=== PATIENT | male | born 1985 | race Caucasian/White ===

== ENCOUNTER 2018-09-20 02:56 | Emergency (ER) | payer SELFPAY ==
[2018-09-20] MEDS ORDERED: ACETAMINOPHEN 325 MG TABLET PO ONE (05:38)
[2018-09-20 06:06] LABS: A TYPE INFLUENZA AG POSITIVE (NEGATIVE); B INFLUENZA AG NEGATIVE (NEGATIVE)
--- NOTE | 2018-09-20 06:14 | RADIOLOGY REPORT (SQ) ---
CLINICAL HISTORY: difficulty breathing COMPARISON: None. TECHNIQUE: XR CHEST 1 VIEW 09/20/2018 12:00 AM [employer] FINDINGS: Cardiac silhouette is normal in size. Lungs are clear without consolidation, atelectasis, mass or edema. There is no pleural effusion. There is no pneumothorax. There are no acute osseous findings. IMPRESSION: Clear lungs.
[2018-09-20] MEDS ORDERED: KETOROLAC TROMETHAMINE INJ/PF 30 MG/1 ML SDV ONE (06:23)
[2018-09-20] MEDS ORDERED: KETOROLAC TROMETHAMINE INJ/PF 30 MG/1 ML SDV IV ONE (06:29)
[2018-09-20] MEDS: NORMAL SALINE 1000 ML 1,000 ML IV PRN ×2 (06:34→08:11)
[2018-09-20 06:48] LABS: ABSOLUTE BASOPHILS # (AUTO) 0.1 10^3/uL (0.0-0.2); ABSOLUTE LYMPHOCYTES (AUTO) 1.4 10^3/uL (0.5-4.7); ABSOLUTE MONOCYTES (AUTO) 1.1 10^3/uL (0.1-1.4); BASOPHILS % (AUTO) 0.6 % (0-2); EOSINOPHILS % (AUTO) 0.3 % (0-6); HEMATOCRIT 46.8 % (37.9-51.0); HEMOGLOBIN 16.1 g/dL (13.5-17.0); LYMPHOCYTES % (AUTO) 16.6 % (13-45); MEAN CORPUSCULAR HEMOGLOBIN 31.6 pg (27.0-33.4); MEAN CORPUSCULAR HGB CONC 34.4 g/dL (32.0-36.0); MEAN CORPUSCULAR VOLUME 92 fl (80-97); MONOCYTES % (AUTO) 13.2 % (3-13); PLATELET COUNT 188 10^3/uL (150-450); RED CELL DISTRIBUTION WIDTH 14.2 % (11.5-14.0); SEGMENTED NEUTROPHILS % (AUTO) 69.3 % (42-78); TOTAL CELLS COUNTED % (AUTO) 100 %; WHITE BLOOD COUNT 8.7 10^3/uL (4.0-10.5)
[2018-09-20 07:01] LABS: ANION GAP 10 (5-19); BLOOD UREA NITROGEN 12 mg/dL (7-20); CALCIUM 8.8 mg/dL (8.4-10.2); CARBON DIOXIDE 22 mmol/L (22-30); CHLORIDE 106 mmol/L (98-107); CREATINE KINASE 72 U/L (55-170); GLUCOSE 101 mg/dL (75-110); POTASSIUM 4.3 mmol/L (3.6-5.0); SODIUM 138.4 mmol/L (137-145)
[2018-09-20 08:35] LABS: APPEARANCE,URINE SLIGHTLY-CLOUDY; BILIRUBIN,URINE NEGATIVE (NEGATIVE); GLUCOSE, URINE NEGATIVE (NEGATIVE); KETONES,URINE NEGATIVE (NEGATIVE); LEUKOCYTE ESTERASE,URINE TRACE (NEGATIVE); NITRITE,URINE NEGATIVE (NEGATIVE); PROTEIN,URINE NEGATIVE (NEGATIVE); URINE SPECIFIC GRAVITY 1.032
[2018-09-20 08:41] LABS: COLOR,URINE YELLOW
[2018-09-20] MEDS ORDERED: ONDANSETRON HCL INJ/PF 4 MG/2 ML SDV IV ONE (08:43)
--- NOTE | 2018-09-20 09:02 | ER Document Report ---
ED General - General Chief Complaint: Flu Symptoms Stated Complaint: FEVER/COUGH Time Seen by Provider: 09/20/18 06:06 TRAVEL OUTSIDE OF THE [place] IN LAST 30 DAYS: No - HPI Patient complains to provider of: Fever feeling unwell Notes: Patient coming in for fever feeling unwell for the last 48 hours. Patient states fever at home was 103 denies any nausea vomiting diarrhea. Family is concerned patient may have had some possible hallucinations at home. Upon my evaluation patient is complaining of headache diffuse body pain. Patient not receive a flu shot this year otherwise denies any past medical history denies any recent travel or sick contacts. Patient looks to be feeling unwell upon my evaluation moving all 4 extremities - Related Data Allergies/Adverse Reactions: cinnamon Allergy (Uncoded 09/20/18 02:57) Past Medical History - Social History Smoking Status: Current Every Day Smoker Chew tobacco use (# tins/day): No Frequency of alcohol use: None Drug Abuse: None Family History: Reviewed & Not Pertinent Patient has suicidal ideation: No Patient has homicidal ideation: No Renal/ Medical History: Denies: Hx Peritoneal Dialysis Past Surgical History: Reports: Hx Cardiac Surgery - cardiac ablation, Hx Tonsillectomy - Immunizations Immunizations up to date: Yes Hx Diphtheria, Pertussis, Tetanus Vaccination: Yes Review of Systems - Review of Systems Constitutional: Fever EENT: No symptoms reported Cardiovascular: No symptoms reported Respiratory: No symptoms reported Gastrointestinal: No symptoms reported Genitourinary: No symptoms reported Male Genitourinary: No symptoms reported Musculoskeletal: No symptoms reported Skin: No symptoms reported Hematologic/Lymphatic: No symptoms reported Neurological/Psychological: No symptoms reported -: Yes All other systems reviewed and negative Physical Exam - Vital signs Vitals: Temp Pulse Resp BP Pulse Ox 99.6 F 98 22 H 145/86 H 97 09/20/18 03:02 09/20/18 03:02 09/20/18 03:02 09/20/18 03:02 09/20/18 03:02 Interpretation: Normal - General General appearance: Appears well, Alert - HEENT Head: Normocephalic, Atraumatic Eyes: Normal Pupils: PERRL - Respiratory Respiratory status: No respiratory distress Chest status: Nontender Breath sounds: Normal Chest palpation: Normal - Cardiovascular Rhythm: Regular Heart sounds: Normal auscultation Murmur: No - Abdominal Inspection: Normal Distension: No distension Bowel sounds: Normal Tenderness: Nontender Organomegaly: No organomegaly - Back Back: Normal, Nontender - Extremities General upper extremity: Normal inspection, Nontender, Normal color, Normal ROM, Normal temperature General lower extremity: Normal inspection, Nontender, Normal color, Normal ROM, Normal temperature, Normal weight bearing. No: Wilder's sign - Neurological Neuro grossly intact: Yes Cognition: Normal Orientation: AAOx4 [place] Coma Scale Eye Opening: Spontaneous [place] Coma Scale Verbal: Oriented [place] Coma Scale Motor: Obeys Commands [place] Coma Scale Total: 15 Speech: Normal Motor strength normal: LUE, RUE, LLE, RLE Sensory: Normal - Psychological Associated symptoms: Normal affect, Normal mood - Skin Skin Temperature: Warm Skin Moisture: Dry Skin Color: Normal Course - Re-evaluation Re-evalutation: 09/20/18 13:58 Laboratory studies showed the patient is positive for flu type A. Patient was given IV fluids for hydration that his urinalysis was very concentrated. Patient otherwise was educated about treatment of flu continue Tylenol and Motrin. Encourage patient drink plenty of fluids patient will be discharged home - Vital Signs Vital signs: Temp Pulse Resp BP Pulse Ox 98.1 F 59 L 15 124/79 95 09/20/18 09:22 09/20/18 09:37 09/20/18 09:37 09/20/18 09:22 09/20/18 09:37 - Laboratory Result Diagrams: 09/20/18 06:35 09/20/18 06:35 Laboratory results interpreted by me: 09/20/18 09/20/18 06:35 08:12 RDW 14.2 H Monocytes % 13.2 H Urine Urobilinogen 2.0 H Ur Leukocyte Esterase TRACE H Discharge - Discharge Clinical Impression: Influenza A, Dehydration Condition: Good Disposition: HOME, SELF-CARE Instructions: Influenza ([facility]) [id number] Additional Instructions: Your symptoms are due to influenza virus. However, it is important that you continue to monitor for any concerning symptoms including inability to tolerate oral fluids, less than 2 urinations in a 24 hour period, and lethargy Please continue to offer oral solutions such as Pedialyte, water, gatorade. It is okay if you do not want to eat over the next several days but it is important that they continue to drink fluids. You may also provide a medication such as ibuprofen (Motrin) or acetaminophen (Tylenol) per box instructions for fever. Please also follow-up with your doctor in the next several days. Please take the medications given to you as prescribed. Prescriptions: Ibuprofen [Motrin 600 mg Tablet] 600 mg PO Q8HP PRN #21 tablet PRN Reason: Ondansetron [Zofran Odt 4 mg Tablet] 1 - 2 tab PO Q4H PRN #30 tab.rapdis PRN Reason: For Nausea/Vomiting Promethazine HCl [Phenergan 25 mg Tablet] 25 mg PO Q6 #30 tablet Forms: Return to Work
[2018-09-20] MEDS ORDERED: ONDANSETRON ODT 4 MG TAB (6 TAB/ER DISP) PO PRN (09:19)
[2018-09-20 09:33] VITALS: BP 124/79
[2018-09-20 09:40] LABS: URINE BARBITURATES SCREEN NEGATIVE; URINE BENZODIAZEPINES SCREEN NEGATIVE; URINE COCAINE SCREEN NEGATIVE; URINE MARIJUANA (THC) SCREEN UNCONFIRMED POSITIVE; URINE METHADONE SCREEN NEGATIVE; URINE PHENCYCLIDINE SCREEN NEGATIVE
== END 2018-09-20 09:41 | disposition home or self-care (01) ==
LOC: ER 02:56
DX: J10.1 Influenza due to other identified influenza virus with other respiratory manifestations (principal); E86.0 Dehydration; R50.9 Fever, unspecified; R51 Headache; F17.200 Nicotine dependence, unspecified, uncomplicated; Z91.018 Allergy to other foods
CPT/HCPCS: 99284; 96361; 96374; 96375; 36415; 82550; 85025; 80048; 81001; 80307; 87804; 71045; J1885; J2405; J7030